=== PATIENT | male | born 1995 | race Caucasian/White ===

== ENCOUNTER 2016-12-22 20:49 | Emergency (ER) | payer SELFPAY ==
[2016-12-22] MEDS: IBUPROFEN 200 MG TAB PO ONE (21:31)
[2016-12-22] MEDS: traMADol 37.5MG/APAP 325MG 1 EA TAB PO ONE (21:31)
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
[2016-12-22] MEDS ORDERED: NEOMYCIN-BACITRACIN-POLYMYXIN 0.9 GM UD TOP ONE (22:20)
[2016-12-22] MEDS: TETANUS,DIPHTHERIA,PERTUSSIS 1 EA SYG IM ONE (22:47)
[2016-12-22] MEDS ORDERED: TETANUS,DIPHTHERIA,PERTUSSIS 1 EA SYG IM ONE (22:47)
--- NOTE | 2016-12-22 22:55 | RAD ---
EXAM DESCRIPTION: Tibia/Fibula,Right CLINICAL HISTORY: trauma COMPARISON: None. FINDINGS: AP and lateral views of the right tibia and fibula were submitted. There is no discrete acute fracture or dislocation. Bone mineralization is within normal limits. There is no radiopaque foreign body material. IMPRESSION: No acute fracture or dislocation. Electronically signed by: Sergei Wilcox MD 12/22/2016 10:55 PM CDT
[2016-12-22 22:57] VITALS: O2SAT 100
[2016-12-22 23:00] VITALS: BP 114/63; TEMP 98.4
== END 2016-12-22 23:00 | disposition home or self-care (01) ==
LOC: ER 20:49
DX: S80.11XA Contusion of right lower leg, initial encounter (principal); S80.811A Abrasion, right lower leg, initial encounter; Z87.891 Personal history of nicotine dependence; Z88.8 Allergy status to other drugs, medicaments and biological substances; Z23 Encounter for immunization; W17.4XXA Fall from dock, initial encounter; Y93.55 Activity, bike riding; Y92.89 Other specified places as the place of occurrence of the external cause